=== PATIENT | female | born 1985 | race Caucasian/White ===

== ENCOUNTER → 2020-07-31 16:36 | Outpatient (CLI) | payer BC, SELFPAY ==
[2020-07-31 17:58] LABS: Hemoglobin A1C% w Est Avg Glu 5.3 % (4.0-6.0)
[2020-07-31 18:26] LABS: Cholesterol 195 mg/dL (140-199); HDL Cholesterol 51 mg/dL (40-60); LDL Cholesterol Calculated 127 mg/dL (<100); Triglycerides 83 mg/dL (35-150)
[2020-08-02 05:37] LABS: RPR Screen Non Reactive (Non Reactive)
[2020-08-02 16:08] LABS: HIV 1 & 2 Ab/Ag 4th Gen Combo NEGATIVE (NEGATIVE); Hep C Virus Ab w/Reflex Quant NEGATIVE s/c (NEGATIVE)
== END ==
PROVIDERS: PCP Family Medicine; Referring Provider Family Medicine; Visit Provider Family Medicine
DX: Z00.01 Encounter for general adult medical examination with abnormal findings (principal)
CPT/HCPCS: 36415; 80061; 83036; 86592; 86803; 87389

== ENCOUNTER 2021-05-09 11:39 | Emergency (ER) | payer BC, OTHER, SELFPAY ==
[2021-05-09] VITALS (13 sets, daily range): BP systolic 138–154; BP diastolic 87–98; PULSE 65–98; RESP 14–21; TEMP 36.7–36.8; O2SAT 82–100; BMI 27.4
--- NOTE | 2021-05-09 11:43 | DI.CT.S_ITS ---
PROCEDURE: CT HEAD/BRAIN WO CON INDICATIONS: headache, blurred vision TECHNIQUE: Noncontrast 4.5 mm thick angled axial sections acquired from the foramen magnum to the vertex, with coronal and sagittal reformats. For radiation dose reduction, the following was used: automated exposure control, adjustment of mA and/or kV according to patient size. COMPARISON: None. FINDINGS: Image quality: Excellent. CSF spaces: Basal cisterns are patent. No extra-axial fluid collections. Ventricles are normal in size and shape. Brain: No midline shift. No intracranial masses or hemorrhage. Reid-white matter interface is normal. Skull and face: Calvarium and visualized facial bones are intact, without suspicious lesions. Sinuses: Visualized sinuses and mastoids are clear. IMPRESSION: Unremarkable head CT. No evidence acute stroke, hemorrhage, or mass. Dictated by: Kevin Boyd M.D. on 05/09/2021 at 12:09 Approved by: Kevin Boyd M.D. on 05/09/2021 at 12:10
[2021-05-09] MEDS: SODIUM CHLORIDE 0.9% 1,000 ML 1000 ML IV (12:21)
[2021-05-09 12:23] LABS: Add Manual Diff / Slide Review NO; Basophils Absolute Auto 0 /uL (0-100); Basophils Percent Auto 0.3 % (0-2); Eosinophils Absolute Auto 500 /uL (0-450); Eosinophils Percent Auto 2.9 % (2-4); Hematocrit 46.3 % (36-46); Hemoglobin 15.7 g/dL (12.0-16.0); Lymphocytes Absolute Auto 2300 /uL (1100-4500); Lymphocytes Percent Auto 13.3 % (25-40); Mean Corpuscular HGB Conc 33.9 % (30-36); Mean Corpuscular Volume 94.2 fL (80-100); Monocytes Absolute Auto 800 /uL (0-900); Monocytes Percent Auto 4.5 % (3-14); Neutrophils Absolute Auto 13600 /uL (1500-7000); Platelet Count 244 X10^3/uL (150-400); Red Blood Cell Count 4.92 X10^6/uL (4.0-5.2); Red Cell Distribution Width 12.5 % (11.6-14.8); White Blood Cell Count 17.2 X10^3/uL (4.5-11.0)
--- NOTE | 2021-05-09 12:33 | ED_ITS ---
HPI - Neuro Symptoms/Deficit General Chief Complaint: Neuro Symptoms/Deficit Stated Complaint: Head Pressure, Dizzy, Aura, Confussion, Double Vis Time Seen by Provider: 05/09/21 11:42 Mode of arrival: Ambulatory Limitations: no limitations History of Present Illness HPI Narrative: 35-year-old female smoker with history of ADHD presents with a friend and a chief complaint of about a month a various symptoms including vague headaches, dizziness, fatigue, trouble sleeping and some blurring of vision. She states that she has had headaches in the past and this feels slightly different. She states it has been gradual in its onset, she takes no blood thinners, has no fever, has had no focal neurologic symptoms and denies neck involvement. She denies any recent trauma or injury. She states that she has been under significant stress at home with multiple significant issues arising and this has affected her overall life. She has not been sleeping well, her appetite has been changed and she has been unable to care for herself. She has attempted some Tylenol and Motrin at home for headache which did little. She presents for evaluation On Anticoagulants: No Related Data Previous Rx's Medication Instructions Recorded dextroamphetamine-amphetamine ER 15 mg PO DAILY #60 cap 10/23/20 15 mg 24hr capsule,extend release (Adderall XR) drospirenone (contraceptive) 4 mg 4 mg PO DAILY 24 Days #56 tab 12/25/20 (28) tablet dextroamphetamine-amphetamine ER 15 mg PO DAILY #60 cap 03/07/21 15 mg 24hr capsule,extend release (Adderall XR) Allergies Allergy/AdvReac Type Severity Reaction Status Date / Time No Known Drug Allergies Allergy Unverified 12/25/20 15:05 Review of Systems Review of Systems Narrative: GENERAL: See HPI HEENT: Denies sinus pain, ear pain, sore throat, difficulty swallowing, dizziness. RESPIRATORY: D she HPI CARDIOVASCULAR: Denies chest pain, palpitations, orthopnea, edema, GASTROINTESTINAL: Denies nausea, vomiting, abdominal pain, diarrhea, constipation, melena. : Denies dysuria, frequency, incontinence, hematuria, urinary retention. MUSCULOSKELETAL: denies weakness, joint pain, or bony pain SKIN: Denies rash, skin lesions, or other NEUROLOGIC: See HPI PSYCHIATRIC: No concerning psychosocial issues. 12 point review of systems is negative except for those stated above Hematologic/Lymphatic On Anticoagulants: No Patient History Medical History Abnormal Pap smear of cervix ADHD (attention deficit hyperactivity disorder), inattentive type Allergies Anemia Anxiety Asthma Chicken pox Hearing difficulty of left ear Hemorrhoid HPV test positive Human papilloma virus Irregular menstrual cycle Kidney stones Migraine without aura Migraines Scoliosis Smoker Family History Mother Cancer Father Mental health problem Grandfather Pulmonary fibrosis Grandmother Diabetes mellitus History of heart disease Grandfather Cancer Diabetes mellitus Grandmother Cancer Celiac disease Social History marital status: occupational status: employed Smoking Status: Current every day smoker quit status: considering quitting substance use type: does not use caffeine: Yes Smoking Status: Current every day smoker Exam Narrative Exam Narrative: GENERAL: [35] year old patient appears stated age. Well- developed patient, in mild distress. HEAD: Atraumatic. Normocephalic. EYES: Pupils equal round and reactive. Extraocular motions intact. No scleral icterus. No injection or drainage. ENT: Nose without bleeding, purulent drainage. Throat without erythema, tonsillar hypertrophy or exudate. Airway patent. NECK: Trachea midline. Non tender CARDIOVASCULAR: Regular rate and rhythm without murmurs, gallops, or rubs. RESPIRATORY: Clear to auscultation. Breath sounds equal bilaterally. No wheezes, rales, or rhonchi. GASTROINTESTINAL: Abdomen soft, non-tender, nondistended. EXTREMITIES: No edema or joint tenderness. BACK: Nontender without deformity or crepitance. No flank tenderness. NEURO: AOx3. SKIN: No rash or erythema of visible areas NIH Stroke Scale 1a. LOC: Patient is alert and keenly responsive (0) 1b. LOC Questions: Patient answers both LOC questions accurately (0) 1c. LOC Commands: Patient performs both tasks correctly (0) 2. Best Gaze: Normal (0) 3. Visual: No visual loss (0) 4. Facial palsy: Normal symmetrical movements (0) 5. Motor arm: No drift (0) 6. Motor leg: No drift (0) 7. Limb ataxia: Absent (0) 8. Sensory: Normal (0) 9. Best language: No aphasia; normal (0) 10. Dysarthria: Normal (0) 11. Extinction and inattention: No abnormality (0) NIHSS: 0 Initial Vital Signs Initial Vital Signs: Vital Signs Pulse Rate 98 H 05/09/21 11:50 Pulse Oximetry 100 05/09/21 11:50 Course Orders Ordered: ED Orders 05/09/21 11:43 CT head/brain wo con Stat 05/09/21 12:17 Complete Blood Count AUTO DIFF Stat Comprehensive Metabolic Panel Stat Discontinued Medications Sodium Chloride (Normal Saline 0.9%) 1,000 mls @ 1,000 mls/hr IV BOLUS ONE Stop: 05/09/21 12:41 Last Infusion: 05/09/21 13:31 Dose: 0 mls/hr Documented by: Admin: 05/09/21 12:21 Dose: 1,000 mls/hr Documented by: KENDRA Reevaluation(s) Reevaluation #1: Patient feeling significant improvement after above-stated therapies. Vital Signs Vital signs: Vital Signs - 8 hr 05/09/21 11:50 05/09/21 11:55 05/09/21 11:59 Temperature 98.0 F Pulse Rate 98 H 90 94 H Respiratory Rate 21 Blood Pressure 141/92 H 152/98 H Pulse Oximetry 100 100 100 05/09/21 12:00 05/09/21 12:30 05/09/21 13:05 Temperature Pulse Rate 83 71 65 Respiratory Rate Blood Pressure 147/91 H 143/95 H Pulse Oximetry 100 100 82 L 05/09/21 13:06 05/09/21 13:30 05/09/21 14:00 Temperature Pulse Rate 72 75 76 Respiratory Rate 15 17 Blood Pressure 154/89 H 151/87 H 149/97 H Pulse Oximetry 93 98 100 05/09/21 14:04 05/09/21 14:30 05/09/21 15:00 Temperature 98.2 F Pulse Rate 71 71 Respiratory Rate 15 14 Blood Pressure 138/95 H 149/93 H Pulse Oximetry 100 100 05/09/21 15:30 Temperature Pulse Rate 75 Respiratory Rate 17 Blood Pressure 142/96 H Pulse Oximetry 100 MDM - Neuro Symptoms/Deficit Lab Data Result diagrams: 05/09/21 12:17 05/09/21 12:17 Labs: Lab Results 05/09/21 05/09/21 Range/Units 12:17 12:17 WBC 17.2 H (4.5-11.0) X10^3/uL RBC 4.92 (4.0-5.2) X10^6/uL Hgb 15.7 (12.0-16.0) g/dL Hct 46.3 H (36-46) % MCV 94.2 (80-100) fL MCH 32.0 (26-34) PG MCHC 33.9 (30-36) % RDW 12.5 (11.6-14.8) % Plt Count 244 (150-400) X10^3/uL Neut % (Auto) 79.0 H (50-75) % Lymph % (Auto) 13.3 L (25-40) % [place] % (Auto) 4.5 (3-14) % Eos % (Auto) 2.9 (2-4) % Baso % (Auto) 0.3 (0-2) % Neut # (Auto) 55824 H (5017-7712) /uL Lymph # (Auto) 2300 (5135-2399) /uL [place] # (Auto) 800 (0-900) /uL Eos # (Auto) 500 H (0-450) /uL Baso # (Auto) 0 (0-100) /uL Sodium 139 (137-145) mmol/L Potassium 4.0 (3.4-5.1) mmol/L Chloride 103 (98-107) mmol/L Carbon Dioxide 28 (22-32) mmol/L BUN 11 (7-17) mg/dL Creatinine 0.78 (0.52-1.04) mg/dL Estimated GFR > 60.0 (>60) mL/min BUN/Creatinine Ratio 14.1 (6-22) Glucose 93 (70-100) mg/dL Calcium 9.7 (8.4-10.2) mg/dL Total Bilirubin 0.7 (0.2-1.3) mg/dL AST 24 (14-36) IU/L ALT 15 (<35) IU/L Alkaline Phosphatase 68 (38-126) U/L Total Protein 7.7 (6.3-8.2) g/dL Albumin 4.5 (3.5-5.0) g/dL Globulin 3.2 (1.7-4.1) g/dL Albumin/Globulin Ratio 1.4 (1.0-2.8) Point of Care Testing Test Results Negative Glucose POC 82 Urine Dip Bedside Urine Glucose Negative Bedside Urine Bilirubin - Negative Bedside Urine Ketone - Negative Urine Specific [place] 1.015 Bedside Urine Occult Blood - Negative Bedside Urine pH 6.0 Bedside Urine Protein - Negative Bedside Urine Urobilinogen - Negative Bedside Urine Nitrite - Negative Bedside Urine Leukocytes - Negative Esterase Imaging Data CT scan - head: Radiologist's Impression: [address] [id number] Scan ReportSigned Patient: Ann Wing CMR#: [id number]: 1985Acct:[id number]/Sex: 35 / FDate of Service: 05/09/21Loc: EDAccession Number: [id number] Procedure: CT head/brain wo con Ordering Provider: Kyle Short D.O. PROCEDURE: CT HEAD/BRAIN WO CON INDICATIONS: headache, blurred vision TECHNIQUE: Noncontrast 4.5 mm thick angled axial sections acquired from the foramen magnum to the vertex, with coronal and sagittal reformats. For radiation dose reduction, the following was used: automated exposure control, adjustment of mA and/or kV according to patient size. COMPARISON: None. FINDINGS: Image quality: Excellent. CSF spaces: Basal cisterns are patent. No extra-axial fluid collections. Ventricles are normal in size and shape. Brain: No midline shift. No intracranial masses or hemorrhage. Reid-white matter interface is normal. Skull and face: Calvarium and visualized facial bones are intact, without suspicious lesions. Sinuses: Visualized sinuses and mastoids are clear. IMPRESSION: Unremarkable head CT. No evidence acute stroke, hemorrhage, or mass. Dictated by: Kevin Boyd M.D. on 05/09/2021 at 12:09 Approved by: Kevin Boyd M.D. on 05/09/2021 at 12:10 [facility] Narrative Medical decision making narrative: Headache considerations include, but not limited to: Subarachnoid hemorrhage, but unlikely as patient denies sudden onset of pain, not worst of life, or neck pain Meningitis considered, but thought unlikely given lack of Brudzinski's, Kernig's sign, altered mental status or fever Giant cell arteritis considered, but thought unlikely given lack of unilateral findings, pain in quaker, vision change HTN Emergency considered, but thought unlikely given normal vitals Other serious diagnoses considered unlikely given lack of red flag findings such as sudden onset, increasing frequency, immunocompromise, systemic signs (fever, chills, stiff neck, or rash), focal neurologic findings, trauma, blood thinners, etc. Discharge Plan Departure Patient Disposition: Home Clinical Impression: Acute dehydration, Fatigue Headache Qualifiers: Headache type: unspecified Headache chronicity pattern: unspecified pattern Intractability: not intractable Qualified Code(s): R51.9 - Headache, unspecified Instructions: Insomnia, DI for Fatigue Activity Restrictions/Additional Instructions: *You have been diagnosed with [fatigue, headache, dizziness, insomnia. Your exam, response to therapies, labs and imaging are very reassuring] *What to do: *Please continue to take your regular medications as directed. [ ] New medication prescriptions sent to your pharmacy: [ ] [ ] New medication written as a paper prescription [x ] No new medications given *Please follow up with your primary care provider in 2-3 days, call for an appointment. Let them know you were seen in the Emergency Department and that we ask that you be seen in follow up. We will electronically transmit a record of today's note if your PCP is in our system *If you do not have a primary care provider please contact the [facility] Resource line at [phone]. They will ask some questions about your medical history and help get you set up with a doctor in the community. *Return to Emergency Department if you should have any new, worsening or concerning symptoms, such as [fever greater than 101 F, shaking chills, worsening pain, persistent vomiting or other bothersome symptoms] Prescriptions: No Action dextroamphetamine-amphetamine [Adderall XR] 15 mg capsule,extended release 24hr 15 mg PO DAILY Qty: 60 RF: 0 drospirenone (contraceptive) 4 mg (28) tablet 4 mg PO DAILY 24 Days Qty: 56 RF: 3 dextroamphetamine-amphetamine [Adderall XR] 15 mg capsule,extended release 24hr 15 mg PO DAILY Qty: 60 RF: 0 Referrals: Jose Morales MD [Primary Care Provider] -
[2021-05-09 12:37] LABS: Alanine Aminotransferase 15 IU/L (<35); Albumin 4.5 g/dL (3.5-5.0); Albumin Globulin Ratio 1.4 (1.0-2.8); Alkaline Phosphatase 68 U/L (38-126); Aspartate Aminotransferase 24 IU/L (14-36); BUN Creatinine Ratio 14.1 (6-22); Bilirubin Total 0.7 mg/dL (0.2-1.3); Blood Urea Nitrogen 11 mg/dL (7-17); Calcium 9.7 mg/dL (8.4-10.2); Carbon Dioxide 28 mmol/L (22-32); Chloride 103 mmol/L (98-107); Estimated Glomerular Filt Rate > 60.0 mL/min (>60); Globulin 3.2 g/dL (1.7-4.1); Glucose 93 mg/dL (70-100); HEMOLYSIS 24 (0-50); Sodium 139 mmol/L (137-145); Total Protein 7.7 g/dL (6.3-8.2)
== END 2021-05-09 15:43 | disposition home or self-care (01) ==
PROVIDERS: Emergency Provider Emergency Medicine; PCP Family Medicine
DX: E86.0 Dehydration (principal); R53.83 Other fatigue; R51.9 Headache, unspecified; H53.8 Other visual disturbances
CPT/HCPCS: 70450; 80053; 81003; 81025; 82962; 85025; 96360; 99284

== ENCOUNTER 2021-10-31 14:47 | Emergency (ER) | payer OTHER, SELFPAY ==
[2021-10-31 14:52] VITALS: BP 159/109; PULSE 77; RESP 22; TEMP 36.6; O2SAT 100; BMI 28.1
[2021-10-31 15:26] LABS: COVID19 -Nasal RAPID POSITIVE (Negative)
--- NOTE | 2021-10-31 15:28 | DI.RAD.S_ITS ---
PROCEDURE: XR CHEST 1V INDICATIONS: shortness of breath TECHNIQUE: One view of the chest was acquired. COMPARISON: None. FINDINGS: Surgical changes and devices: None. Lungs and pleura: Lungs are clear. No pleural effusions or pneumothorax. Mediastinum: Mediastinal contours appear normal. Heart size is normal. Bones and chest wall: No suspicious bony lesions. Overlying soft tissues appear unremarkable. IMPRESSION: No acute cardiopulmonary disease process. Dictated by: Karime Perez MD, PhD on 10/31/2021 at 15:56 Approved by: Karime Perez MD, PhD on 10/31/2021 at 15:56
--- NOTE | 2021-10-31 15:30 | ED_ITS ---
HPI - Chest Pain <Arie De Jesus PA-C - Last Filed: 10/31/21 17:03> General Chief Complaint: Chest Pain Stated Complaint: heavy chest; pressure in head/ears, running nose Time Seen by Provider: 10/31/21 15:21 Source: patient Mode of arrival: Ambulatory Limitations: no limitations History of Present Illness HPI narrative: Patient 36-year-old female presenting to the ED complaining of shortness of breath chest tightness. She reports her family and friends of all tested positive for COVID her home test and the recent test today earlier was all negative. She states that her shortness of breath has been progressively getting worse over the last few days which increases with activity. She has increased of fatigue and chest tightness all symptoms seem to resolve with rest. She has a history of hypertension denies ever having a heart attack or stroke. No reported fever cough congestion body aches nausea vomiting diarrhea. Related Data Previous Rx's Medication Instructions Recorded dextroamphetamine-amphetamine ER 15 mg PO DAILY #60 cap 10/23/20 15 mg 24hr capsule,extend release (Adderall XR) dextroamphetamine-amphetamine ER 15 mg PO DAILY #60 cap 08/22/21 15 mg 24hr capsule,extend release (Adderall XR) escitalopram oxalate 10 mg tablet 10 mg PO DAILY #60 tab 08/26/21 (Lexapro) hydroxyzine HCl 10 mg tablet 10 mg PO TID PRN #30 tab 08/26/21 Allergies Allergy/AdvReac Type Severity Reaction Status Date / Time No Known Drug Allergies Allergy Unverified 10/27/21 17:38 Review of Systems <Arie De Jesus PA-C - Last Filed: 10/31/21 17:03> Review of Systems ROS Unobtainable: All systems reviewed & are unremarkable except as noted in HPI and below Constitutional Constitutional: Denies chills, Reports fatigue, Reports fever(s), Denies frequent falls, Reports lethargy and Reports weakness Eyes Eyes: Denies change in vision, Denies eye discharge, Denies irritation and Denies loss of vision ENT Ears, Nose, Mouth, and Throat: Denies change in voice, Denies dizziness, Denies neck pain, Denies sore throat and Denies throat swelling Cardiovascular Cardiovascular: Reports chest pain, Denies irregular heart rhythm, Denies lightheadedness, Denies palpitations, Denies dyspnea, Reports dyspnea on exertion and Denies orthopnea Respiratory Respiratory: Denies cough, Denies dyspnea, Reports dyspnea on exertion and Denies wheezing Gastrointestinal Gastrointestinal: Denies abdominal pain, Denies change in bowel habits, Denies diarrhea, Denies nausea and Denies vomiting Genitourinary Genitourinary: Denies hematuria, Denies flank pain, Denies urinary incontinence and Denies urinary urgency Musculoskeletal Musculoskeletal: Denies back pain, Denies muscle weakness, Denies neck pain, Denies numbness and Denies tingling Integumentary/Breasts Skin/Breast: Denies pruritus, Denies erythema, Denies rash and Denies wounds Neurologic Neurologic: Denies behavioral changes, Denies confusion, Denies dizziness, Denies frequent falls, Denies loss of vision, Denies numbness, Denies tingling and Reports weakness Psychiatric Psychiatric: Denies anxiety, Denies behavioral changes, Denies confusion, Denies depression, Denies homicidal ideation and Denies suicidal ideation Endocrine Endocrine: Reports fatigue, Denies flushing and Denies palpitations Hematologic/Lymphatic Hematologic/Lymphatic: Denies easy bruising Allergic/Immunologic Allergic/Immunologic: Denies urticaria, Denies throat swelling and Denies wheezing Patient History <Arie De Jesus PA-C - Last Filed: 10/31/21 17:03> Medical History Abnormal Pap smear of cervix ADHD (attention deficit hyperactivity disorder), inattentive type Allergies Anemia Anxiety Asthma Chicken pox Hearing difficulty of left ear Hemorrhoid HPV test positive Human papilloma virus Irregular menstrual cycle Kidney stones Migraine without aura Migraines Scoliosis Smoker Family History Mother Cancer Father Mental health problem Grandfather Pulmonary fibrosis Grandmother Diabetes mellitus History of heart disease Grandfather Cancer Diabetes mellitus Grandmother Cancer Celiac disease Social History marital status: occupational status: employed Smoking Status: Current every day smoker quit status: considering quitting substance use type: does not use caffeine: Yes Smoking Status: Current every day smoker tobacco type: cigarettes Substance Use Type: does not use Exam <Arie De Jesus PA-C - Last Filed: 10/31/21 17:03> Initial Vital Signs Initial Vital Signs: Vital Signs Temperature 98 F 10/31/21 14:52 Pulse Rate 77 10/31/21 14:52 Respiratory Rate 22 10/31/21 14:52 Blood Pressure 159/109 H 10/31/21 14:52 Pulse Oximetry 100 10/31/21 14:52 Const General: cooperative, healthy appearing, comfortable and well developed Nutritional Appearance: average body habitus Orientation: Orientation [facility] Head: normal to inspection Ears: hearing grossly normal bilaterally Nose: external nose normal Face and sinus: normal facial exam Mouth: oral mucosae normal Eyes General: appearance normal, both eyes and all related structures EOM: EOM intact bilaterally Resp Effort & Inspection: normal respiratory effort and able to speak in complete sentences Auscultation: clear to auscultation bilaterally Course <Arie De Jesus PA-C - Last Filed: 10/31/21 17:03> Orders Ordered: ED Orders 10/31/21 15:00 COVID19 -Nasal swab/Pre-Proc Stat 10/31/21 15:28 XR chest 1V Stat EKG-12 Lead Stat 10/31/21 15:58 Complete Blood Count AUTO DIFF Stat Comprehensive Metabolic Panel Stat Troponin & CK Cardiac Panel Stat Reevaluation(s) Reevaluation #1: I spoke with patient regarding findings. Due to her positive COVID results she will need to self isolate no work until symptoms have resolved. We will discharge her home to quarantine at home Vital Signs Vital signs: Vital Signs - 8 hr 10/31/21 14:52 10/31/21 17:52 Temperature 98 F Pulse Rate 77 76 Respiratory Rate 22 18 Blood Pressure 159/109 H 157/101 H Pulse Oximetry 100 99 MDM - Chest Pain <IMELDA Ballard Last Filed: 10/31/21 17:03> Differential Diagnosis Differential diagnosis: Likely other Lab Data Result diagrams: 10/31/21 15:58 10/31/21 15:58 Labs: Lab Results 10/31/21 10/31/21 10/31/21 Range/Units 15:00 15:58 15:58 WBC 7.6 (4.5-11.0) X10^3/uL RBC 4.77 (4.0-5.2) X10^6/uL Hgb 15.1 (12.0-16.0) g/dL Hct 44.3 (36-46) % MCV 92.9 (80-100) fL MCH 31.7 (26-34) PG MCHC 34.1 (30-36) % RDW 12.8 (11.6-14.8) % Plt Count 218 (150-400) X10^3/uL Neut % (Auto) 50.1 (50-75) % Lymph % (Auto) 35.0 (25-40) % [place] % (Auto) 8.3 (3-14) % Eos % (Auto) 6.0 H (2-4) % Baso % (Auto) 0.6 (0-2) % Neut # (Auto) 3800 (3340-2234) /uL Lymph # (Auto) 2700 (1435-7786) /uL [place] # (Auto) 600 (0-900) /uL Eos # (Auto) 500 H (0-450) /uL Baso # (Auto) 0 (0-100) /uL Sodium 139 (137-145) mmol/L Potassium 4.0 (3.4-5.1) mmol/L Chloride 104 (98-107) mmol/L Carbon Dioxide 31 (22-32) mmol/L BUN 12 (7-17) mg/dL Creatinine 0.78 (0.52-1.04) mg/dL Estimated GFR > 60.0 (>60) mL/min BUN/Creatinine Ratio 15.4 (6-22) Glucose 76 (70-100) mg/dL Calcium 9.6 (8.4-10.2) mg/dL Total Bilirubin 0.4 (0.2-1.3) mg/dL AST 19 (14-36) IU/L ALT 14 (<35) IU/L Alkaline Phosphatase 57 (38-126) U/L Total Creatine Kinase 39 (30-135) U/L CK-MB (CK-2) TNP CK-MB (CK-2) Rel Index TNP Troponin I < 0.012 (0.01-0.034) ng/mL Total Protein 7.4 (6.3-8.2) g/dL Albumin 4.3 (3.5-5.0) g/dL Globulin 3.1 (1.7-4.1) g/dL Albumin/Globulin Ratio 1.4 (1.0-2.8) SARS-CoV-2 (PCR) Positive H (Negative) Imaging Data Chest x-ray: Radiologist's Impression: PROCEDURE:? XR CHEST 1V ? INDICATIONS:? shortness of breath ? TECHNIQUE:? One view of the chest was acquired.? ? COMPARISON:? None. ? FINDINGS:? ? Surgical changes and devices:? None.? ? Lungs and pleura:? Lungs are clear.? No pleural effusions or pneumothorax.? ? Mediastinum:? Mediastinal contours appear normal.? Heart size is normal.? ? Bones and chest wall:? No suspicious bony lesions.? Overlying soft tissues appear unremarkable.? ? IMPRESSION:? No acute cardiopulmonary disease process. ? ? Dictated by: Karime Perez MD, PhD on 10/31/2021 at 15:56 ? ? Approved by: Karime Perez MD, PhD on 10/31/2021 at 15:56?? MDM Narrative Medical decision making narrative: Patient was evaluated in the ER for chest tightness. Workup showed no acute process other than a positive COVID test. I spoke to patient about findings and suggested to be discharged home with isolation at home she was agreeable discharge instructions will follow Discharge Plan Departure Patient Disposition: Home Clinical Impression: COVID Instructions: DI for COVID-19 (Suspected or Confirmed ) Prescriptions: No Action dextroamphetamine-amphetamine [Adderall XR] 15 mg capsule,extended release 24hr 15 mg PO DAILY Qty: 60 0RF dextroamphetamine-amphetamine [Adderall XR] 15 mg capsule,extended release 24hr 15 mg PO DAILY Qty: 60 0RF escitalopram oxalate [Lexapro] 10 mg tablet 10 mg PO DAILY Qty: 60 0RF hydroxyzine HCl 10 mg tablet 10 mg PO TID PRN (Reason: anxiety) Qty: 30 0RF Referrals: oJse Morales MD [Primary Care Provider] -
[2021-10-31 16:07] LABS: Add Manual Diff / Slide Review NO; Basophils Absolute Auto 0 /uL (0-100); Basophils Percent Auto 0.6 % (0-2); Eosinophils Absolute Auto 500 /uL (0-450); Hematocrit 44.3 % (36-46); Hemoglobin 15.1 g/dL (12.0-16.0); Lymphocytes Absolute Auto 2700 /uL (1100-4500); Mean Corpuscular HGB Conc 34.1 % (30-36); Mean Corpuscular Hemoglobin 31.7 PG (26-34); Mean Corpuscular Volume 92.9 fL (80-100); Monocytes Absolute Auto 600 /uL (0-900); Monocytes Percent Auto 8.3 % (3-14); Neutrophils Absolute Auto 3800 /uL (1500-7000); Neutrophils Percent Auto 50.1 % (50-75); Platelet Count 218 X10^3/uL (150-400); Red Blood Cell Count 4.77 X10^6/uL (4.0-5.2); Red Cell Distribution Width 12.8 % (11.6-14.8); White Blood Cell Count 7.6 X10^3/uL (4.5-11.0)
[2021-10-31 16:28] LABS: Alanine Aminotransferase 14 IU/L (<35); Albumin 4.3 g/dL (3.5-5.0); Albumin Globulin Ratio 1.4 (1.0-2.8); Alkaline Phosphatase 57 U/L (38-126); Aspartate Aminotransferase 19 IU/L (14-36); BUN Creatinine Ratio 15.4 (6-22); Bilirubin Total 0.4 mg/dL (0.2-1.3); Blood Urea Nitrogen 12 mg/dL (7-17); Calcium 9.6 mg/dL (8.4-10.2); Carbon Dioxide 31 mmol/L (22-32); Chloride 104 mmol/L (98-107); Creatine Kinase 39 U/L (30-135); Estimated Glomerular Filt Rate > 60.0 mL/min (>60); Globulin 3.1 g/dL (1.7-4.1); Glucose 76 mg/dL (70-100); HEMOLYSIS < 15 (0-50); Sodium 139 mmol/L (137-145); Total Protein 7.4 g/dL (6.3-8.2)
[2021-10-31 16:39] LABS: Troponin I < 0.012 ng/mL (0.01-0.034)
[2021-10-31 17:52] VITALS: BP 157/101; PULSE 76; RESP 18; O2SAT 99
== END 2021-10-31 17:55 | disposition home or self-care (01) ==
PROVIDERS: Emergency Medicine; Emergency Provider Physician Assistant; PCP Family Medicine
DX: U07.1 COVID-19 (principal); F17.210 Nicotine dependence, cigarettes, uncomplicated
CPT/HCPCS: 36415; 71045; 80053; 82550; 84484; 85025; 87635; 93005; 99283; 99284; C9803

== ENCOUNTER → 2024-03-03 10:19 | Outpatient (CLI) | payer OTHER, SELFPAY ==
[2024-03-03 11:14] LABS: Add Manual Diff / Slide Review NO; Basophils Absolute Auto 0 /uL (0-100); Basophils Percent Auto 0.4 % (0-2); Eosinophils Absolute Auto 100 /uL (0-450); Eosinophils Percent Auto 1.5 % (2-4); Hematocrit 43.4 % (36-46); Hemoglobin 14.9 g/dL (12.0-16.0); Lymphocytes Absolute Auto 1800 /uL (1100-4500); Lymphocytes Percent Auto 25.5 % (25-40); Mean Corpuscular HGB Conc 34.4 % (30-36); Mean Corpuscular Hemoglobin 31.5 PG (26-34); Mean Corpuscular Volume 91.5 fL (80-100); Monocytes Absolute Auto 500 /uL (0-900); Monocytes Percent Auto 6.9 % (3-14); Neutrophils Absolute Auto 4700 /uL (1500-7000); Neutrophils Percent Auto 65.7 % (50-75); Platelet Count 260 X10^3/uL (150-400); Red Blood Cell Count 4.74 X10^6/uL (4.0-5.2); Red Cell Distribution Width 12.4 % (11.6-14.8); White Blood Cell Count 7.1 X10^3/uL (4.5-11.0)
[2024-03-03 11:37] LABS: Alanine Aminotransferase 12 IU/L (<35); Albumin 4.3 g/dL (3.5-5.0); Albumin Globulin Ratio 1.6 (1.0-2.8); Alkaline Phosphatase 64 U/L (38-126); Aspartate Aminotransferase 20 IU/L (14-36); Bilirubin Total 0.7 mg/dL (0.2-1.3); Blood Urea Nitrogen 9 mg/dL (7-17); Calcium 8.8 mg/dL (8.4-10.2); Carbon Dioxide 26 mmol/L (22-32); Chloride 108 mmol/L (98-107); Cholesterol 168 mg/dL (140-199); Estimated Glomerular Filt Rate > 60 mL/min (>60); Globulin 2.7 g/dL (1.7-4.1); Glucose 95 mg/dL (70-100); HDL Cholesterol 55 mg/dL (40-60); HEMOLYSIS < 15 (0-50); LDL Cholesterol Calculated 100 mg/dL (<100); Potassium 4.6 mmol/L (3.4-5.1); Sodium 139 mmol/L (137-145); Triglycerides 67 mg/dL (35-150)
[2024-03-03 12:25] LABS: TSH w/ Reflex to FT4 1.49 uIU/mL (0.47-4.68)
--- NOTE | 2024-03-03 15:41 | DI.MG.S_ITS ---
BILATERAL DIGITAL SCREENING MAMMOGRAM 3D/2D WITH CAD: 03/03/2024 CLINICAL: Routine screening. Baseline exam. No prior exams were available for comparison. Both breasts are heterogeneously dense, which may obscure small masses (category c / 51-75% glandular tissue). Current study was also evaluated with a Computer Aided Detection (CAD) system. No significant masses, calcifications, or other findings are seen in either breast. IMPRESSION: NEGATIVE There is no mammographic evidence of malignancy. A 1 year screening mammogram is recommended. Based on the Tyrer Cuzick model (a risk assessment model) the patient's lifetime risk is 15.1% and her 10 year risk is 1.9%. According to the ACR, ACS, and NCCN guidelines, an annual breast MRI exam along with mammogram is recommended if the patient's lifetime risk is 20% or greater. This exam was interpreted at Station ID: [id number]. NOTE: For mammograms, a report in lay terms will be sent to the patient. Approximately 15% of breast malignancies will not be visualized mammographically. In the management of a palpable breast mass, a negative mammogram must not discourage biopsy of a clinically suspicious lesion. Electronically Signed By: Paxton acevedo/daniel:03/03/2024 16:33:19 letter sent: Normal Exam ACR BI-RADS Category 1: Negative [id number]
[2024-03-04 07:46] LABS: Apolipoprotein B 83 mg/dL (<90)
== END ==
PROVIDERS: PCP Family Medicine; Referring Provider Family Medicine; Visit Provider Family Medicine
DX: Z12.31 Encounter for screening mammogram for malignant neoplasm of breast (principal); R92.333 Mammographic heterogeneous density, bilateral breasts; G43.009 Migraine without aura, not intractable, without status migrainosus; F41.9 Anxiety disorder, unspecified; F90.0 Attention-deficit hyperactivity disorder, predominantly inattentive type
CPT/HCPCS: 36415; 77063; 77067; 80053; 80061; 82172; 84443; 85025

== ENCOUNTER 2024-11-16 11:15 | Emergency (ER) | payer OTHER, SELFPAY ==
[2024-11-16 11:29] VITALS: BP 177/120; PULSE 106; RESP 14; TEMP 37.1; O2SAT 97; BMI 29.2
[2024-11-16 11:48] LABS: Add Manual Diff / Slide Review NO; Basophils Absolute Auto 0 /uL (0-100); Basophils Percent Auto 0.3 % (0-2); Eosinophils Absolute Auto 100 /uL (0-450); Hematocrit 47.1 % (36-46); Hemoglobin 16.1 g/dL (12.0-16.0); Lymphocytes Absolute Auto 1400 /uL (1100-4500); Lymphocytes Percent Auto 19.2 % (25-40); Mean Corpuscular HGB Conc 34.2 % (30-36); Mean Corpuscular Hemoglobin 31.3 PG (26-34); Mean Corpuscular Volume 91.6 fL (80-100); Monocytes Absolute Auto 900 /uL (0-900); Monocytes Percent Auto 11.8 % (3-14); Neutrophils Absolute Auto 4900 /uL (1500-7000); Neutrophils Percent Auto 67.7 % (50-75); Platelet Count 229 X10^3/uL (150-400); Red Blood Cell Count 5.14 X10^6/uL (4.0-5.2); Red Cell Distribution Width 12.8 % (11.6-14.8); White Blood Cell Count 7.3 X10^3/uL (4.5-11.0)
[2024-11-16 12:02] LABS: Alanine Aminotransferase 30 IU/L (<35); Albumin 4.4 g/dL (3.5-5.0); Albumin Globulin Ratio 1.4 (1.0-2.8); Alkaline Phosphatase 58 U/L (38-126); Aspartate Aminotransferase 33 IU/L (14-36); BUN Creatinine Ratio 12.3 (6-22); Bilirubin Total 0.5 mg/dL (0.2-1.3); Blood Urea Nitrogen 8 mg/dL (7-17); Calcium 8.6 mg/dL (8.4-10.2); Carbon Dioxide 22 mmol/L (22-32); Chloride 104 mmol/L (98-107); Estimated Glomerular Filt Rate > 60 mL/min (>60); Globulin 3.2 g/dL (1.7-4.1); Glucose 109 mg/dL (70-100); HEMOLYSIS 22 (0-50); Lipase 83 U/L (23-300); Potassium 3.6 mmol/L (3.4-5.1); Sodium 135 mmol/L (137-145); Total Protein 7.6 g/dL (6.3-8.2)
[2024-11-16 12:19] LABS: Bacteria Urine Moderate (10-30); Culture Indicated Urine Cult Not Indicated; Ictotest Urine Negative (Negative); RBC Urine 5-10/HPF (0-5/HPF); Squamous Epithelial Cell Urine 1-5 /HPF (0-5/HPF); Urine Volume 10mL (spun); WBC Urine 1-5/HPF (0-5/HPF)
--- NOTE | 2024-11-16 12:34 | ED_ITS ---
HPI - Nausea/Vomiting/Diarrhea <Yaritza Lindsey PA-C - Last Filed: 11/16/24 22:18> General Chief complaint: Nausea/Vomiting/Diarrhea Stated complaint: Flu, N/V/D Time Seen by Provider: 11/16/24 12:34 Mode of arrival: Ambulatory History of Present Illness HPI Narrative: Ann Wing is a pleasant 39-year-old female with a past medical history of occasional elevated blood pressure not on medication who presents to the emergency department for nausea/vomiting/diarrhea x 3 days. 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 States Wednesday night she had acute onset of nausea, vomiting, diarrhea. Describes the emesis and stool as yellow/watery in color. No bleeding. She was also having some stomach cramping at the time and use Pepto-Bismol. Reports that today she has had no vomiting and no diarrhea and is feeling much better but overall feels very fatigued. She denies having any fevers but has been having chills. No abdominal pain at this time. Denies upper respiratory symptoms such as chest pain, shortness of breath, cough, sore throat but reports from all of the vomiting she does have soreness in her entire chest and abdomen. Denies any medication allergies. No prior abdominal surgeries. Related Data Previous Rx's Medication Instructions Recorded dextroamphetamine-amphetamine 10 10 mg PO DAILY #30 tabs 02/25/24 mg tablet (Adderall) dextroamphetamine-amphetamine 10 10 mg PO DAILY #30 tabs 02/25/24 mg tablet (Adderall) dextroamphetamine-amphetamine 10 10 mg PO DAILY #30 tabs 02/25/24 mg tablet (Adderall) dextroamphetamine-amphetamine ER 20 mg PO DAILY #30 caps 02/25/24 20 mg 24hr capsule,extend release (Adderall XR) dextroamphetamine-amphetamine ER 20 mg PO DAILY #30 caps 02/25/24 20 mg 24hr capsule,extend release (Adderall XR) dextroamphetamine-amphetamine ER 20 mg PO DAILY #30 caps 02/25/24 20 mg 24hr capsule,extend release (Adderall XR) triamcinolone acetonide 0.1 % 1 applic topical BID #30 grams 03/20/24 topical cream ondansetron 4 mg disintegrating 4 mg PO Q8H PRN nausea and 11/16/24 tablet vomiting #14 tabs Allergies Allergy/AdvReac Type Severity Reaction Status Date / Time No Known Drug Allergies Allergy Verified 11/16/24 11:29 Review of Systems <Yaritza Lindsey PA-C - Last Filed: 11/16/24 22:18> Review of Systems ROS Unobtainable: All systems reviewed & are unremarkable except as noted in HPI and below Patient History <Yaritza Lindsey PA-C - Last Filed: 11/16/24 22:18> Medical History Migraine without aura HPV test positive Hearing difficulty of left ear Asthma Allergies Migraines Scoliosis Chicken pox Anemia Irregular menstrual cycle Human papilloma virus Abnormal Pap smear of cervix Kidney stones Hemorrhoid Smoker Anxiety ADHD (attention deficit hyperactivity disorder), inattentive type Family History Mother Cancer Father Mental health problem Grandfather Pulmonary fibrosis Grandmother Diabetes mellitus History of heart disease Grandfather Cancer Diabetes mellitus Grandmother Cancer Celiac disease Social History marital status: occupational status: employed Smoking Status: Former smoker quit status: considering quitting substance use type: does not use caffeine: Yes Smoking Status: Former smoker tobacco type: cigarettes Exam <Yaritza Lindsey PA-C - Last Filed: 11/16/24 22:18> Narrative Exam Narrative: GENERAL: 39 year old patient appears stated age. Well-developed patient, in no acute distress. HEAD: Atraumatic. Normocephalic. NECK: Trachea midline. Cervical ROM intact. CARDIOVASCULAR: Regular rate and rhythm. RESPIRATORY: ?Nonlabored respirations. ?Speaking in clear, full sentences. ?Clear to auscultation. Breath sounds equal bilaterally. No wheezes, rales, or rhonchi. ? GASTROINTESTINAL: Abdomen soft, non-tender, nondistended. Normal bowel sounds. EXTREMITIES: No edema or joint tenderness. NEURO: AOx3. ?Clear speech. ?Moves all 4 extremities appropriately. SKIN: No rash or erythema of visible areas Initial Vital Signs Initial Vital Signs: Vital Signs Temperature 98.7 F 11/16/24 11:29 Pulse Rate 106 H 11/16/24 11:29 Respiratory Rate 14 11/16/24 11:29 Blood Pressure 177/120 H 11/16/24 11:29 Pulse Oximetry 97 11/16/24 11:29 Oxygen Delivery Method Room Air 11/16/24 11:29 <Francie Mathias DO - Last Filed: 11/28/24 18:57> Initial Vital Signs Initial Vital Signs: Vital Signs Temperature 98.7 F 11/16/24 11:29 Pulse Rate 106 H 11/16/24 11:29 Respiratory Rate 14 11/16/24 11:29 Blood Pressure 177/120 H 11/16/24 11:29 Pulse Oximetry 97 11/16/24 11:29 Oxygen Delivery Method Room Air 11/16/24 11:29 Course <Yaritza Lindsey PA-C - Last Filed: 11/16/24 22:18> Orders Ordered: Discontinued Medications Sodium Chloride (Normal Saline 0.9%) 1,000 mls @ 1,000 mls/hr IV BOLUS ONE Stop: 11/16/24 13:45 Last Infusion: 11/16/24 14:25 Dose: Infused Documented By: Admin: 11/16/24 13:12 Dose: 1,000 mls/hr Documented By: LEÓN Ondansetron HCl (Ondansetron 4 Mg/2 Ml Inj) 4 mg IV NOW PRN PRN Reason: Nausea And Vomiting Ondansetron HCl (Ondansetron 4 Mg Odt) 4 mg PO NOW PRN PRN Reason: Nausea And Vomiting Ondansetron HCl (Ondansetron 4 Mg/2 Ml Inj) 4 mg IV NOW ONE Stop: 11/16/24 12:47 Last Admin: 11/16/24 13:12 Dose: 4 mg Documented By: SPF Vital Signs Vital signs: Vital Signs - 8 hr 11/16/24 15:15 Pulse Rate 86 Respiratory Rate 18 Blood Pressure 168/96 H Pulse Oximetry 98 Oxygen Delivery Method Room Air <Francie Mathias DO - Last Filed: 11/28/24 18:57> Orders Ordered: Discontinued Medications Sodium Chloride (Normal Saline 0.9%) 1,000 mls @ 1,000 mls/hr IV BOLUS ONE Stop: 11/16/24 13:45 Last Infusion: 11/16/24 14:25 Dose: Infused Documented By: Admin: 11/16/24 13:12 Dose: 1,000 mls/hr Documented By: LEÓN Ondansetron HCl (Ondansetron 4 Mg/2 Ml Inj) 4 mg IV NOW PRN PRN Reason: Nausea And Vomiting Ondansetron HCl (Ondansetron 4 Mg Odt) 4 mg PO NOW PRN PRN Reason: Nausea And Vomiting Ondansetron HCl (Ondansetron 4 Mg/2 Ml Inj) 4 mg IV NOW ONE Stop: 11/16/24 12:47 Last Admin: 11/16/24 13:12 Dose: 4 mg Documented By: LEÓN Vital Signs Vital signs: Vital Signs - 8 hr 11/16/24 15:15 Pulse Rate 86 Respiratory Rate 18 Blood Pressure 168/96 H Pulse Oximetry 98 Oxygen Delivery Method Room Air MDM - Nausea/Vomiting/Diarrhea <Yaritza Linsdey PA-C - Last Filed: 11/16/24 22:18> Medical Records Attestation: I reviewed the patient's medical records. Lab Data 11/16/24 11:36 11/16/24 11:36 Labs: Lab Results 11/16/24 11/16/24 11/16/24 Range/Units 11:33 11:36 11:50 WBC 7.3 (4.5-11.0) X10^3/uL RBC 5.14 (4.0-5.2) X10^6/uL Hgb 16.1 H (12.0-16.0) g/dL Hct 47.1 H (36-46) % MCV 91.6 (80-100) fL MCH 31.3 (26-34) PG MCHC 34.2 (30-36) % RDW 12.8 (11.6-14.8) % Plt Count 229 (150-400) X10^3/uL Neut % (Auto) 67.7 (50-75) % Lymph % (Auto) 19.2 L (25-40) % [place] % (Auto) 11.8 (3-14) % Eos % (Auto) 1.0 L (2-4) % Baso % (Auto) 0.3 (0-2) % Neut # (Auto) 4900 (9555-8396) /uL Lymph # (Auto) 1400 (3922-9552) /uL [place] # (Auto) 900 (0-900) /uL Eos # (Auto) 100 (0-450) /uL Baso # (Auto) 0 (0-100) /uL Sodium 135 L (137-145) mmol/L Potassium 3.6 (3.4-5.1) mmol/L Chloride 104 (98-107) mmol/L Carbon Dioxide 22 (22-32) mmol/L BUN 8 (7-17) mg/dL Creatinine 0.65 (0.52-1.04) mg/dL Estimated GFR > 60 (>60) mL/min BUN/Creatinine Ratio 12.3 (6-22) Glucose 109 H (70-100) mg/dL Calcium 8.6 (8.4-10.2) mg/dL Total Bilirubin 0.5 (0.2-1.3) mg/dL AST 33 (14-36) IU/L ALT 30 (<35) IU/L Alkaline Phosphatase 58 (38-126) U/L Total Protein 7.6 (6.3-8.2) g/dL Albumin 4.4 (3.5-5.0) g/dL Globulin 3.2 (1.7-4.1) g/dL Albumin/Globulin Ratio 1.4 (1.0-2.8) Lipase 83 (23-300) U/L Ur Bilirubin Confirm Negative (Negative) Urine RBC 5-10/hpf H (0-5/HPF) Urine WBC 1-5/hpf (0-5/HPF) Ur Squamous Epith Cells 1-5 /hpf (0-5/HPF) Urine Bacteria Moderate (10-30) H (None) Ur Culture Indicated? Cult not indicated Vol Urine Centrifuged 10ml (spun) Stl C. cayetanensis PCR Cancelled Stool Rotavirus (PCR) Cancelled Stool Adenovirus (PCR) Cancelled Stool Astrovirus (PCR) Cancelled Stool Cryptosporidium PCR Cancelled Stl E.coli Shiga Tox PCR Cancelled St Sh/Enteroin Ecoli PCR Cancelled Stool E coli O157 PCR Cancelled Stl Enterotoxigenic E PCR Cancelled Stool EPEC (PCR) Cancelled Stl E. histolytica PCR Cancelled Stool Giardia Lamblia PCR Cancelled Stool Sapovirus (PCR) Cancelled Stl P. shigelloides PCR Cancelled St Y.enterocolitica PCR Cancelled Stool Vibrio (PCR) Cancelled Stl Vibrio cholerae PCR Cancelled Stl Enteroaggr Ecoli PCR Cancelled Stl Norovirus GI/GII PCR Cancelled Chlamy pneumoniae PCR Not detected (Not Detect) Adenovirus (PCR) Not detected (Not Detect) B. pertussis DNA (PCR) Not detected (Not Detect) B.parapertussis DNA PCR Not detected (Not Detecte) Campylobacter (PCR) Cancelled C. difficile Tox (PCR) Cancelled Coronavirus OC43 (PCR) Not detected (Not Detect) Coronavirus HKU1 (PCR) Not detected (Not Detect) Coronavirus 229E (PCR) Not detected (Not Detect) SARS-CoV-2 (PCR) Not detected (Not Detecte) Coronavirus NL63 (PCR) Not detected (Not Detect) Human Metapneumovir PCR Not detected (Not Detect) Influenza Type A (PCR) Not detected (Not Detect) Influenza Type B (PCR) Not detected (Not Detect) M. pneumoniae (PCR) Not detected (Not Detect) Parainfluenza 1 (PCR) Not detected (Not Detect) Parainfluenza 2 (PCR) Not detected (Not Detect) Parainfluenza 3 (PCR) Not detected (Not Detect) Parainfluenza 4 (PCR) Not detected (Not Detect) RSV (PCR) Not detected (Not Detect) Entero/Rhino (PCR) Not detected (Not Detect) Salmonella (PCR) Cancelled Point of Care Testing Test Results Negative Urine Dip Bedside Urine Glucose Negative Bedside Urine Bilirubin + 1 Bedside Urine Ketone +/- 5 Urine Specific [place] 1.030 Bedside Urine Occult Blood ++ Bedside Urine pH 6.0 Bedside Urine Protein ++ 100 Bedside Urine Urobilinogen - Negative Bedside Urine Nitrite - Negative Bedside Urine Leukocytes +/- 15 Esterase MDM Narrative Medical decision making narrative: 39-year-old female with a past medical history of occasional elevated blood pressure not on medication who presents to the emergency department for nausea/vomiting/diarrhea x 3 days. Differential diagnosis includes but is not limited to gastroenteritis, norovirus, viral syndrome, UTI, dehydration, small bowel obstruction,, C diff, etc. On exam patient is in no acute distress, nontoxic appearing, abdomen soft and nontender. Her heart rate and blood pressure were elevated in triage. She is afebrile. She has been having nausea vomiting and diarrhea for 3 days however symptoms are improving significantly and she has had no vomiting and was only able to provide very small stool sample today. Abdominal labs and GI panel was obtained in triage. We will treat with fluids and Zofran pending results. Patient unable to provide enough stool for a stool sample. She has had no diarrhea during ED stay, therefore C diff is very unlikely at this time. Labs reveal normal WBC count 7.3, hemoglobin slightly elevated at 16.1 sodium 135, glucose 109, normal renal function, normal LFTs. UA reveals ketones, 5-10 RBCs and moderate bacteria however patient is on her menstrual cycle is not having any dysuria. Overall patient's workup is consistent with gastroenteritis and mild dehydration. She is feeling much better after Zofran and IV fluids, no abdominal pain, abdomen soft and nontender. P.o. challenge passed. Recommended supportive care, prescribed Zofran if needed, hydration with water/electrolyte beverage. Strict ED return precautions discussed. Patient verbalized understanding of all information is stable for discharge home. <Francie Mathias, DO - Last Filed: 11/28/24 18:57> Lab Data Labs: Lab Results 11/16/24 11/16/24 11/16/24 Range/Units 11:33 11:36 11:50 WBC 7.3 (4.5-11.0) X10^3/uL RBC 5.14 (4.0-5.2) X10^6/uL Hgb 16.1 H (12.0-16.0) g/dL Hct 47.1 H (36-46) % MCV 91.6 (80-100) fL MCH 31.3 (26-34) PG MCHC 34.2 (30-36) % RDW 12.8 (11.6-14.8) % Plt Count 229 (150-400) X10^3/uL Neut % (Auto) 67.7 (50-75) % Lymph % (Auto) 19.2 L (25-40) % [place] % (Auto) 11.8 (3-14) % Eos % (Auto) 1.0 L (2-4) % Baso % (Auto) 0.3 (0-2) % Neut # (Auto) 4900 (7246-7531) /uL Lymph # (Auto) 1400 (2284-1650) /uL [place] # (Auto) 900 (0-900) /uL Eos # (Auto) 100 (0-450) /uL Baso # (Auto) 0 (0-100) /uL Sodium 135 L (137-145) mmol/L Potassium 3.6 (3.4-5.1) mmol/L Chloride 104 (98-107) mmol/L Carbon Dioxide 22 (22-32) mmol/L BUN 8 (7-17) mg/dL Creatinine 0.65 (0.52-1.04) mg/dL Estimated GFR > 60 (>60) mL/min BUN/Creatinine Ratio 12.3 (6-22) Glucose 109 H (70-100) mg/dL Calcium 8.6 (8.4-10.2) mg/dL Total Bilirubin 0.5 (0.2-1.3) mg/dL AST 33 (14-36) IU/L ALT 30 (<35) IU/L Alkaline Phosphatase 58 (38-126) U/L Total Protein 7.6 (6.3-8.2) g/dL Albumin 4.4 (3.5-5.0) g/dL Globulin 3.2 (1.7-4.1) g/dL Albumin/Globulin Ratio 1.4 (1.0-2.8) Lipase 83 (23-300) U/L Ur Bilirubin Confirm Negative (Negative) Urine RBC 5-10/hpf H (0-5/HPF) Urine WBC 1-5/hpf (0-5/HPF) Ur Squamous Epith Cells 1-5 /hpf (0-5/HPF) Urine Bacteria Moderate (10-30) H (None) Ur Culture Indicated? Cult not indicated Vol Urine Centrifuged 10ml (spun) Stl C. cayetanensis PCR Cancelled Stool Rotavirus (PCR) Cancelled Stool Adenovirus (PCR) Cancelled Stool Astrovirus (PCR) Cancelled Stool Cryptosporidium PCR Cancelled Stl E.coli Shiga Tox PCR Cancelled St Sh/Enteroin Ecoli PCR Cancelled Stool E coli O157 PCR Cancelled Stl Enterotoxigenic E PCR Cancelled Stool EPEC (PCR) Cancelled Stl E. histolytica PCR Cancelled Stool Giardia Lamblia PCR Cancelled Stool Sapovirus (PCR) Cancelled Stl P. shigelloides PCR Cancelled St Y.enterocolitica PCR Cancelled Stool Vibrio (PCR) Cancelled Stl Vibrio cholerae PCR Cancelled Stl Enteroaggr Ecoli PCR Cancelled Stl Norovirus GI/GII PCR Cancelled Chlamy pneumoniae PCR Not detected (Not Detect) Adenovirus (PCR) Not detected (Not Detect) B. pertussis DNA (PCR) Not detected (Not Detect) B.parapertussis DNA PCR Not detected (Not Detecte) Campylobacter (PCR) Cancelled C. difficile Tox (PCR) Cancelled Coronavirus OC43 (PCR) Not detected (Not Detect) Coronavirus HKU1 (PCR) Not detected (Not Detect) Coronavirus 229E (PCR) Not detected (Not Detect) SARS-CoV-2 (PCR) Not detected (Not Detecte) Coronavirus NL63 (PCR) Not detected (Not Detect) Human Metapneumovir PCR Not detected (Not Detect) Influenza Type A (PCR) Not detected (Not Detect) Influenza Type B (PCR) Not detected (Not Detect) M. pneumoniae (PCR) Not detected (Not Detect) Parainfluenza 1 (PCR) Not detected (Not Detect) Parainfluenza 2 (PCR) Not detected (Not Detect) Parainfluenza 3 (PCR) Not detected (Not Detect) Parainfluenza 4 (PCR) Not detected (Not Detect) RSV (PCR) Not detected (Not Detect) Entero/Rhino (PCR) Not detected (Not Detect) Salmonella (PCR) Cancelled Point of Care Testing Test Results Negative Urine Dip Bedside Urine Glucose Negative Bedside Urine Bilirubin + 1 Bedside Urine Ketone +/- 5 Urine Specific [place] 1.030 Bedside Urine Occult Blood ++ Bedside Urine pH 6.0 Bedside Urine Protein ++ 100 Bedside Urine Urobilinogen - Negative Bedside Urine Nitrite - Negative Bedside Urine Leukocytes +/- 15 Esterase Discharge Plan Departure Patient Disposition: Home Clinical Impression: Gastroenteritis Instructions: DI for Viral Gastroenteritis -- Adult Activity Restrictions/Additional Instructions: Dear Ms. Wing, Today you were evaluated for nausea, vomiting, diarrhea. Your lab work was overall reassuring however did reveal that you were dehydrated. You were treated with IV fluids and IV Zofran. Your symptoms are most consistent with gastroenteritis which is a ?stomach bug? however if you develop any new or worsening symptoms, abdominal pain, fevers, return of diarrhea or any other concerns I want you to come back to the emergency department immediately. Please rest, hydrate with water and Pedialyte, and use the prescribed nausea medicine as needed. Wash hands frequently and wipe down surfaces with bleach to prevent spread of infection. Please follow up with your primary care doctor within the next 2-3 days for ER follow-up. (If you do not have a PCP you can call [phone]. ?to schedule an appointment with an [facility] Primary Care Provider) IF YOU DEVELOP ANY NEW OR WORSENING SYMPTOMS, RETURN TO THE ER! Please read the attached instructions, they highlight more specific treatments and interventions for you at home. Thank you for letting me participate in your care, Yaritza Lindsey PA-C Prescriptions: New ondansetron 4 mg tablet,disintegrating 4 mg PO Q8H PRN (Reason: nausea and vomiting) Qty: 14 0RF No Action triamcinolone acetonide 0.1 % cream 1 applic topical BID Qty: 30 1RF dextroamphetamine-amphetamine [Adderall XR] 20 mg capsule,extended release 24hr 20 mg PO DAILY Qty: 30 0RF dextroamphetamine-amphetamine [Adderall] 10 mg tablet 10 mg PO DAILY Qty: 30 0RF Rx Instructions: do not take later than 2pm dextroamphetamine-amphetamine [Adderall] 10 mg tablet 10 mg PO DAILY Qty: 30 0RF dextroamphetamine-amphetamine [Adderall] 10 mg tablet 10 mg PO DAILY Qty: 30 0RF dextroamphetamine-amphetamine [Adderall XR] 20 mg capsule,extended release 24hr 20 mg PO DAILY Qty: 30 0RF dextroamphetamine-amphetamine [Adderall XR] 20 mg capsule,extended release 24hr 20 mg PO DAILY Qty: 30 0RF Referrals: Jose Morales MD [Primary Care Provider] - Stand Alone Forms: Patient Portal/API/Survey, Work Release Note ED Sign-out <Francie Mathias DO - Last Filed: 11/28/24 18:57> Cosign ED Attending Cosignature Attestation: I was immediately available in the department for consultation.
[2024-11-16 13:12] LABS: Adenovirus Not Detected (Not Detect); B. parapertussis Not Detected (Not Detecte); Bordetella pertussis Not Detected (Not Detect); Chlamydophila pneumoniae Not Detected (Not Detect); Coronavirus 229E Not Detected (Not Detect); Coronavirus HKU1 Not Detected (Not Detect); Coronavirus NL 63 Not Detected (Not Detect); Coronavirus OC43 Not Detected (Not Detect); Human Metapneumovirus Not Detected (Not Detect); Human Rhinovirus/Enterovirus Not Detected (Not Detect); Influenza A Not Detected (Not Detect); Influenza B Not Detected (Not Detect); Mycoplasma pneumoniae Not Detected (Not Detect); Parainfluenza Virus 1 Not Detected (Not Detect); Parainfluenza Virus 2 Not Detected (Not Detect); Parainfluenza Virus 3 Not Detected (Not Detect); Parainfluenza Virus 4 Not Detected (Not Detect); Respiratory Syncytial Virus Not Detected (Not Detect); SARS- CoV-2 Not Detected (Not Detecte)
[2024-11-16] MEDS: ONDANSETRON 4 MG/2 ML INJ IV (13:12)
[2024-11-16] MEDS: SODIUM CHLORIDE 0.9% 1,000 ML 1000 ML IV (13:12)
[2024-11-16 14:04] VITALS: BP 168/96; PULSE 86; RESP 18; O2SAT 98
[2024-11-16 15:15] VITALS: BP 168/96; PULSE 86; RESP 18; O2SAT 98
== END 2024-11-16 15:55 | disposition home or self-care (01) ==
PROVIDERS: Emergency Medicine; Emergency Provider Physician Assistant; PCP Family Medicine
DX: K52.9 Noninfective gastroenteritis and colitis, unspecified (principal); R03.0 Elevated blood-pressure reading, without diagnosis of hypertension; R00.0 Tachycardia, unspecified
CPT/HCPCS: 36415; 80053; 81003; 81015; 81025; 83690; 85025; 87633; 96361; 96374; 99284; J2405